=== PATIENT | male | born 1960 | race Caucasian/White ===

== ENCOUNTER 2017-01-17 09:47 | Day surgery (SDC) | payer BC ==
[~2017-01-17] VITALS: Ht 188 cm; Wt 128.4 kg
[~2017-01-17 09:47] MED LIST: LOVA20TA PO; METO25 PO; ST JTAB PO; ZITH250T PO
[2017-01-17] MEDS ORDERED: METO50TA PO (10:05)
[2017-01-17] MEDS ORDERED: ASPI1TAB69 PO (10:06)
[2017-01-17] MEDS ORDERED: NS 1000P @30 MLS/HR (KVO) IV SCH (10:15)
[2017-01-17 10:27] VITALS: BP 129/85; PULSE 77; RESP 18; TEMP 98.2; O2SAT 95
[2017-01-17 10:48] LABS: AUTOMATED NEUTROPHIL # 8.9 TH/MM3 (1.8-7.7); BASOPHIL # 0.1 TH/MM3 (0-0.2); BASOPHIL % 0.5 % (0.0-2.0); EOSINOPHIL # 0.2 TH/MM3 (0-0.4); EOSINOPHIL % 1.3 % (0.0-4.0); HEMATOCRIT 52.4 % (39.0-51.0); HEMO FLAGS DIFF FINAL; LYMPH % 20.4 % (9.0-44.0); LYMPHOCYTE # 2.6 TH/MM3 (1.0-4.8); MEAN CELL VOLUME 88.3 FL (80.0-100.0); MEAN CORPUSCULAR HEMOGLOBIN 30.4 PG (27.0-34.0); MEAN CORPUSCULAR HGB CONC 34.4 % (32.0-36.0); MONO % 8.9 % (0.0-8.0); NEUT % 68.9 % (16.0-70.0); PLATELET COUNT 264 TH/MM3 (150-450); RED BLOOD COUNT 5.93 MIL/MM3 (4.50-5.90); RED CELL DISTRIBUTION WIDTH 13.4 % (11.6-17.2); WHITE BLOOD COUNT 12.9 TH/MM3 (4.0-11.0)
[2017-01-17] MEDS ORDERED: SODIUM CHLOR 0.9% 1000 ML INJ 1,000 ML IV SCH (11:04)
[2017-01-17] MEDS ORDERED: ASPIRIN 325 MG TAB PO SCH (11:15)
[2017-01-17 11:28] LABS: APTT (PATIENT) 27.1 SEC (24.3-30.1); PROTHROMBIN TIME - PATIENT 11.4 SEC (9.8-11.6)
[2017-01-17 11:40] LABS: BICARBONATE 29.1 MEQ/L (21.0-32.0)
[2017-01-17 11:44] LABS: POTASSIUM 5.4 MEQ/L (3.5-5.1)
[2017-01-17] MEDS ORDERED: HEPARIN-NS/PF INJ 500 ML ONE (12:16)
[2017-01-17] MEDS ORDERED: MIDAZOLAM HCL 5 MG/5 ML VIAL ONE (12:17)
[2017-01-17] MEDS ORDERED: IOHEXOL 350 MG/ML 100 ML BTL (for Cath Lab) OTHER ONE (16:44)
--- NOTE | 2017-01-17 22:53 | MP ---
cc: JANES GALVAN MD, JOSE R. M.D. DATE OF SURGERY 01/17/17 PROCEDURE Cardiac catheterization INDICATION Continued chest pain, atrial fibrillation, possible old infarct by nuclear stress test. CONSENT Full informed consent was obtained prior to procedure. Risks of , bleeding, myocardial or infarction, perforation, aspiration, foreseen and foreseen complications are reviewed. The patient fully appeared to understand the risks. PROCEDURE IN DETAIL The patient was prepped and draped in usual sterile fashion. The right femoral artery was entered using a micropuncture technique via the 4-[place] sheath left and right coronary catheters used to intubate there and right coronaries. Multiple angiographic views were carried out. During the catheterization procedure, all catheters and sheaths were removed. Manual pressure was applied until good hemostasis ws achieved. The patient was returned to his room in stable condition. FINDINGS HEMODYNAMIC RESULTS Aortic pressure was 94/70 with mean of 81, left ventricular function was 96 with a left end ventricular diastolic pressure 13. There was no evidence of significant gradient on pullback of LV tract. VENTRICULOGRAM The overall left ejection fraction was estimated at 40%. There was no evidence of significant mitral vegetation or mural thrombus. CORONARIES Left main is free of significant disease. Left anterior descending artery is a large vessel. The first diagonal branch is a medium and free of significant disease. The second diagonal branch is medium free of the significant disease. The third diagonal branch is small, the remainder of the LAD moderate. The left circumflex is a large vessel with a large first obtuse marginal branch, again mild diffuse 25% disease is noted but no significant stenosis. The right coronary artery is a large dominant vessel. There is evidence of diffuse 25-40% disease in the mid section, 25-30% disease distally. The PDA is large and free of significant disease. CONCLUSION 1. No evidence of hemodynamically significant disease. Reduced ejection fraction 40% with evidence of cardiomyopathy. 2. Atrial fibrillation. PLAN I will plan to discharge the patient later today. He will followup in my office in approximately 1-2 weeks time. The patient will also follow up with Dr. Nilson Marques. Janes Galvan MD, FRCPEDWAR /1:47 PM /10:42 PM ASHWINI
--- NOTE | 2017-01-18 11:39 | EKG ---
Date Performed: 01/17/2017 Time Performed: 10:29:08 PTAGE: 56 years EKG: Atrial fibrillation Anterior T wave changes are nonspecific Abnormal ECG PREVIOUS TRACING : 06/10/2016 07.40 DOCTOR: Dell Conklin Interpretating Date/Time 01/18/2017 11:38:00
== END 2017-01-17 18:31 | disposition home or self-care (01) ==
LOC: HDIC 09:47 → HDOC 09:47
PROVIDERS: ATTEND Internal Medicine Cardiovascular Disease
DX: R07.9 Chest pain, unspecified (principal); I42.9 Cardiomyopathy, unspecified; I48.91 Unspecified atrial fibrillation; I48.92 Unspecified atrial flutter; I10 Essential (primary) hypertension; R73.9 Hyperglycemia, unspecified; E78.5 Hyperlipidemia, unspecified; B19.20 Unspecified viral hepatitis C without hepatic coma
CPT/HCPCS: 80048; 85025; 85610; 85730; 93005; 93458; C1769; C1893; J1644; J2250; J3010; J7030; Q9967

== ENCOUNTER 2017-05-03 06:57 | Emergency (ER) | payer BC ==
[~2017-05-03 06:57] MED LIST changes: +ASPI1TAB69 PO; -LOVA20TA PO; -METO25 PO; +METO50TA PO; -ST JTAB PO; -ZITH250T PO
--- NOTE | 2017-05-03 07:27 | PD ---
HPI Chief Complaint: Code Blue Time Seen by Provider: 07:10 Travel History International Travel<30 days: No Contact w/Intl Traveler<30days: No History of Present Illness HPI The patient is 57 years old. EMS was called due to altered mental status. He was found laying on the floor next to his bed gazing from left to right. EMS noted difficulty breathing and coughing. The patient, being quite heavy, took some time to extricate and place into the ambulance. According to EMS he became unresponsive at 6:41 AM and ACLS protocol resuscitation was started at that point. His blood sugar was 71. EMS placed a Combitube after a failed attempt at endotracheal intubation. A right interosseous line was used after a failed attempt at a left interosseous line occurred. EMS administered 2 rounds of epinephrine en route to the ER. They note that his rhythm on the monitor was asystole throughout transportation. EMS notes the pupils were fixed and dilated upon evaluation in the ambulance and remained so throughout the resuscitative course. They note that 2 weeks prior the patient underwent an ablation in [place]. The notes that he was last seen normal last night. Breath sounds were confirmed upon arrival to the ER. Chest compressions were immediately continued. 2 pulse checks occurred and no pulse was appreciable. After approximately 25 minutes of asystole the patient was pronounced. Cardiac akinesis was observed by transthoracic ultrasound. PFSH Past Medical History Cancer: No Cardiovascular Problems: Yes High Cholesterol: Yes Chest Pain: No Diabetes: No Diminished Hearing: Yes ([place]) Diverticulitis: Yes Gastrointestinal Disorders: No Glaucoma: No Hepatitis: Yes (HX OF HEP C) Hiatal Hernia: No Hypertension: Yes Musculoskeletal: Yes ("PINCHED NERVE" IN BACK SEES PAIN CHELI.) Integumentary: No Thyroid Disease: No Past Surgical History Other Surgery: Yes (lump removed from back ) Social History Alcohol Use: Yes (RARE) Tobacco Use: No Substance Use: No Allergies-Medications (Allergen,Severity, Reaction): Coded Allergies: No Known Allergies (Verified , 05/03/17) Reported Meds & Prescriptions Reported Meds & Active Scripts Active Reported Aspirin 81 Mg Tabdr 81 Mg PO DAILY Metoprolol Tartrate 50 Mg Tab 50 Mg PO BID Review of Systems ROS Limitations: Intubated, Altered Mental Status Physical Exam Narrative GENERAL: 57-year-old male intubated with a Combitube GCS 3T SKIN: Focused skin assessment warm/dry. HEAD: Atraumatic. Normocephalic. EYES: Pupils fixed and dilated ENT: No nasal bleeding or discharge. Mucous membranes pink and moist. Intubated. NECK: Trachea midline. No JVD. CARDIOVASCULAR: Asystole. RESPIRATORY: Intubated. Breath sounds present bilaterally GASTROINTESTINAL: Abdomen soft, nondistended. Hepatic and splenic margins not palpable. MUSCULOSKELETAL: No obvious deformities. No clubbing. No cyanosis. No edema. NEUROLOGICAL: GCS 3T PSYCHIATRIC: Unable to assess MDM Medical Decision Making Medical Screen Exam Complete: Yes Emergency Medical Condition: Yes Differential Diagnosis Stroke, anoxia, cardiopulmonary arrest Narrative Course Please refer to history of present illness. The patient's primary care provider is Dr. Campbell. He also follows with Dr. Galvan of cardiology. Transthoracic ultrasound revealed akinesis at 7:03 AM the patient was pronounced at that point. Diagnosis Primary Impression: Additional Instructions: Not applicable Med/Other Pt SpecificInfo: Other Disposition: 20 Condition: Nain Jarrell MD May 03, 2017 07:27
== END 2017-05-03 08:25 | disposition expired ==
LOC: PHED 06:57
DX: R06.00 Dyspnea, unspecified; R05 Cough; I10 Essential (primary) hypertension; E78.00 Pure hypercholesterolemia, unspecified; B19.20 Unspecified viral hepatitis C without hepatic coma
CPT/HCPCS: 92950